=== PATIENT | male | born 1965 | race African-American/Black ===

== ENCOUNTER 2018-07-09 15:20 | Emergency (ER) | payer OTHER ==
[~2018-07-09] VITALS: Ht 172.7 cm; Wt 83.9 kg
[~2018-07-09 15:20] MED LIST: ANAPROX DS550 MG PO; KETOCONAZOLE60 GM TP; NOHOMEMEDICATIONS
[2018-07-09] MEDS ORDERED: AMOXICILLIN 50500 MG PO (16:12)
[2018-07-09] MEDS ORDERED: TESSALON PERLE100 MG PO (16:12)
[2018-07-09 16:21] VITALS: BP 118/70
== END 2018-07-09 16:21 | disposition home or self-care (01) ==
LOC: M.ERS 15:20
DX: J06.9 Acute upper respiratory infection, unspecified (principal)

== ENCOUNTER 2018-08-02 22:56 | Emergency (ER) | payer BC ==
[~2018-08-02] VITALS: Ht 172.7 cm; Wt 83.9 kg
[~2018-08-02 22:56] MED LIST changes: +AMOXICILLIN 50500 MG PO; +TESSALON PERLE100 MG PO
[2018-08-02 23:02] VITALS: BP 147/76
== END 2018-08-02 23:41 | disposition home or self-care (01) ==
LOC: M.ERS 22:56
DX: R19.7 Diarrhea, unspecified (principal)

== ENCOUNTER 2018-09-13 17:46 | Emergency (ER) | payer BC ==
[~2018-09-13] VITALS: Ht 172.7 cm; Wt 83.9 kg
[2018-09-13 17:54] VITALS: BP 108/66
== END 2018-09-13 18:05 | disposition home or self-care (01) ==
LOC: M.ERS 17:46
DX: R19.7 Diarrhea, unspecified (principal)